=== PATIENT | male | born 1985 | race Caucasian/White ===

== ENCOUNTER → 2019-10-01 | Outpatient (CLI) | payer MEDICAID ==
--- NOTE | 2019-10-01 14:32 | REP ---
Clinical: Trauma. Pain. Non-weightbearing. Technique: Nine views of the left knee. Findings: The osseous structures appear intact and without evidence for acute fracture. Lateral view demonstrates anterior swelling over the distal femur with fat stranding and small effusion. Findings may reflect underlying soft tissue injuries. Impression: 1. No obvious acute fracture or dislocation. 2. Swelling and effusion suggesting the possibility of underlying soft tissue injury. Electronically Signed by Teofilo Boudreaux MD 10/01/2019 02:23 P
== END ==
LOC: M LRY 13:33
PROVIDERS: ATTEND Physician Assistant
DX: M25.462 Effusion, left knee (principal); S89.92XA Unspecified injury of left lower leg, initial encounter; X58.XXXA Exposure to other specified factors, initial encounter; Y92.9 Unspecified place or not applicable; Y93.9 Activity, unspecified; Y99.9 Unspecified external cause status